=== PATIENT | female | born 1980 | race Caucasian/White ===

== ENCOUNTER 2020-03-18 23:03 | Emergency (ER) | payer BC, OTHER ==
[2020-03-18 23:25] VITALS: BP 123/91; PULSE 90; TEMP 98.8; BMI 32.3
[2020-03-18] MEDS ORDERED: ACETAMINOPHEN 325 MG TABLET (FP) PO ONE (23:39)
== END 2020-03-19 01:14 | disposition home or self-care (01) ==
LOC: JER 23:03
DX: S00.03XA Contusion of scalp, initial encounter (principal); S60.421A Blister (nonthermal) of left index finger, initial encounter; Y04.0XXA Assault by unarmed brawl or fight, initial encounter
CPT/HCPCS: 99283-25